=== PATIENT | male | born 1990 ===

== ENCOUNTER 2024-01-13 13:15 | Emergency (ER) | payer SELFPAY ==
[2024-01-13] MEDS ORDERED: MORPHINE 4 MG/ML SYR ONE (14:05)
[2024-01-13] MEDS ORDERED: NA CHLORIDE 0.9% 1,000 ML ONE ×2 (14:05→16:09)
[2024-01-13] MEDS ORDERED: ONDANSETRON 4 MG/2 ML VIAL ONE (14:05)
[2024-01-13 14:06] LABS: Absolute Basophils 0.1 K/uL (0-0.5); Absolute Eosinophils 0.4 K/uL (0-0.5); Absolute Monocytes 0.5 K/uL (0.1-1.3); Absolute Neutrophil 5.1 K/uL (1.8-8.0); Basophils % 1.3 % (0-1.3); Eosinophils % 5.1 % (0-4.4); Hematocrit 48.4 % (39.6-49.0); Hemoglobin 16.4 g/dL (13.6-17.9); Lymphocytes % 24.5 % (15.3-44.8); MCH 32.9 pg (27.0-35.0); MCV 96.8 fL (80-100); MPV 8.4 fL (7.6-11.3); Neutrophils % 63.1 % (41.7-73.7); Platelets 266 thou/uL (152-406); Red Cell Distribution Width 11.9 % (12.1-15.2)
[2024-01-13 14:24] LABS: ALT/SGPT 20 U/L (16-61); AST/SGOT 15 U/L (15-37); Alkaline Phosphatase 103 U/L (45-117); Anion Gap 20.2 mEq/L (5.0-15.0); BUN Blood Urea Nitrogen 15 mg/dL (7-18); Bicarbonate 15 mEq/L (21-32); Bilirubin Total 1.7 mg/dL (0.2-1.0); Glomerular Filtration Rate 98 ml/min (=/>90); Lipase 24 U/L (13-75); Potassium 4.2 mEq/L (3.5-5.1); Protein, Total 7.6 g/dL (6.4-8.2); Sodium Level 135 mEq/L (136-145)
[2024-01-13 14:25] LABS: Albumin < 0.9 g/dL (3.4-5.0); Albumin/Globulin Ratio ND (1.1-1.8); Globulin 6.7 g/dL (2.3-3.5)
[2024-01-13 14:26] LABS: Glucose Level 43 mg/dL (74-106)
--- NOTE | 2024-01-13 15:21 | RAD REPORT ---
EXAMINATION: CT ABDOMEN AND PELVIS WITH CONTRAST CLINICAL INDICATION: Male, 33 years old.ABD PAIN TECHNIQUE: CT abdomen and pelvis was performed, after the administration of IV contrast, [facility]. Axial, sagittal and coronal reconstructions were obtained. One or more of the following dose reduction techniques were used: Automated exposure control, adjustment of the mA and/o r kV according to patient size, and/or iterative reconstruction. Unless otherwise specified, incidental findings do not require dedicated imaging follow-up. [id number]. COMPARISON: No prior exam. FINDINGS: LOWER CHEST: The visualized lung bases are clear. LIVER: Normal in size and contour. No focal lesion. GALLBLADDER/BILE DUCT: No biliary ductal dilatation.? PANCREAS: No mass, ductal dilation, or ana maria-pancreatic fluid. SPLEEN: Normal size. No focal lesion. ADRENALS: Normal; no mass. KIDNEYS AND URETERS: Normal size and contour. No hydronephrosis. URINARY BLADDER: Normal contour. GASTROINTESTINAL TRACT: Stomach is non-dilated. Small bowel has normal course and caliber. No colonic wall thickening or pericolonic inflammatory changes. No appendicitis. PERITONEUM: No ascites.Small fat containing ventral hernia. LYMPH NODES: No lymphadenopathy. ABDOMINAL AORTA AND OTHER VESSELS: Normal caliber aorta and IVC. REPRODUCTIVE ORGANS: No pathologic process MUSCULOSKELETAL: No acute or suspicious osseous abnormality. ADDITIONAL FINDINGS: None. IMPRESSION: No acute or significant abnormalities seen in the abdomen or pelvis.
[2024-01-13 15:41] LABS: Specific Gravity > 1.030 (1.005-1.030); Sqamous Epithelial <5 /HPF (None Seen); Urine Bacteria None Seen /HPF (<20); Urine Bilirubin NEGATIVE (Negative); Urine Blood Negative (Negative); Urine Clarity Clear (Clear); Urine Color Light-Yellow (Yellow); Urine Culture Reflex Order NOT NEEDED; Urine Glucose NEGATIVE (Negative); Urine Ketones NEGATIVE (Negative); Urine Microscopic Reflex YN ORDER UMIC; Urine Mucus 1+ /HPF (None Seen); Urine Nitrite NEGATIVE (Negative); Urine Protein NEGATIVE (Negative); Urine RBC <5 /HPF (None Seen); Urine Urobilinogen Normal (Normal); Urine WBC <5 /HPF (<5); Urine pH 6.5 (5.0-7.0)
[2024-01-13] MEDS ORDERED: D10W 250 ML IV ONE (16:10)
[2024-01-13 16:15] LABS: Arterial Blood Carboxyhemoglob 2.6 % (0-1.5); Blood Gas Oxyhemoglobin 92.5 % (94-97)
[2024-01-13 16:16] LABS: Blood Gas THB 15.4 g/dl (12-18)
[2024-01-13 17:08] LABS: Anion Gap 7.8 mEq/L (5.0-15.0); Potassium 3.8 mEq/L (3.5-5.1)
--- NOTE | 2024-01-13 17:20 | EDPHYS ---
Physician Documentation [facility] Name: Fermin Guo Age: 33 yrs Sex: Male : 1990 Arrival Date: 01/13/2024 Time: 13:15 Bed 20 Private MD: JORGE Physician Aaron Aguilar HPI: 01/12 15:32 This 33 yrs old Male presents to ER via Ambulatory with complaints of Pain. gurmeet 15:32 The patient presents with abdominal pain in the lower abdomen, in the periumbilical gurmeet area. Onset: The symptoms/episode began/occurred 2 day(s) ago. The symptoms do not radiate. Associated signs and symptoms: none. The symptoms are described as crampy. Modifying factors: The symptoms are alleviated by nothing, the symptoms are aggravated by food, pressure. Severity of pain: At its worst the pain was moderate in the emergency department the pain has improved. The patient has experienced a previous episode, The patient has experienced similar episodes in the past. Historical: - Allergies: 13:38 No Known Allergies; tm6 - PMHx: 13:38 None; tm6 - PSHx: 13:38 None; tm6 - Immunization history:: Client reports receiving the 2nd dose of the Covid vaccine. - Infectious Disease History:: Denies. - Social history:: Smoking status: Patient reports the use of cigarette tobacco products, smokes one-half pack cigarettes per day, Patient uses alcohol, occasionally. - Family history:: not pertinent. ROS: 15:32 Constitutional: Negative for fever, chills, and weight loss, Eyes: Negative for injury, gurmeet pain, redness, and discharge, ENT: Negative for injury, pain, and discharge, Neck: Negative for injury, pain, and swelling, Cardiovascular: Negative for chest pain, palpitations, and edema, Respiratory: Negative for shortness of breath, cough, wheezing, and pleuritic chest pain, Back: Negative for injury and pain, : Negative for injury, bleeding, discharge, and swelling, MS/Extremity: Negative for injury and deformity, Skin: Negative for injury, rash, and discoloration, Neuro: Negative for headache, weakness, numbness, tingling, and seizure, Psych: Negative for depression, anxiety, suicide ideation, homicidal ideation, and hallucinations, Allergy/Immunology: Negative for hives, rash, and allergies, Endocrine: Negative for neck swelling, polydipsia, polyuria, polyphagia, and marked weight changes, Hematologic/Lymphatic: Negative for swollen nodes, abnormal bleeding, and unusual bruising, 15:32 Abdomen/GI: Positive for abdominal pain, of the umbilical area, Exam: 15:32 Constitutional: This is a well developed, well nourished patient who is awake, alert, gurmeet and in no acute distress. Head/Face: Normocephalic, atraumatic. Eyes: Pupils equal round and reactive to light, extra-ocular motions intact. Lids and lashes normal. Conjunctiva and sclera are non-icteric and not injected. Cornea within normal limits. Periorbital areas with no swelling, redness, or edema. ENT: Nares patent. No nasal discharge, no septal abnormalities noted. Tympanic membranes are normal and external auditory canals are clear. Oropharynx with no redness, swelling, or masses, exudates, or evidence of obstruction, uvula midline. Mucous membranes moist. Neck: Trachea midline, no thyromegaly or masses palpated, and no cervical lymphadenopathy. Supple, full range of motion without nuchal rigidity, or vertebral point tenderness. No Meningismus. Chest/axilla: Normal chest wall appearance and motion. Nontender with no deformity. No lesions are appreciated. Cardiovascular: Regular rate and rhythm with a normal S1 and S2. No gallops, murmurs, or rubs. Normal PMI, no JVD. No pulse deficits. Respiratory: Lungs have equal breath sounds bilaterally, clear to auscultation and percussion. No rales, rhonchi or wheezes noted. No increased work of breathing, no retractions or nasal flaring. Abdomen/GI: Soft, non-tender, with normal bowel sounds. No distension or tympany. No guarding or rebound. No evidence of tenderness throughout. Back: No spinal tenderness. No costovertebral tenderness. Full range of motion. Male : Normal genitalia with no discharge or lesions. Skin: Warm, dry with normal turgor. Normal color with no rashes, no lesions, and no evidence of cellulitis. MS/ Extremity: Pulses equal, no cyanosis. Neurovascular intact. Full, normal range of motion. Neuro: Awake and alert, GCS 15, oriented to person, place, time, and situation. Cranial nerves II-XII grossly intact. Motor strength 5/5 in all extremities. Sensory grossly intact. Cerebellar exam normal. Normal gait. Psych: Awake, alert, with orientation to person, place and time. Behavior, mood, and affect are within normal limits. Vital Signs: 13:36 BP 122 / 91; Pulse 82; Resp 17; Temp 97.4; Pulse Ox 100% on R/A; MAP 101 mmHg; Weight tm6 64 kg; Height 5 ft. 6 in. ; Pain 8/10; 14:25 BP 112 / 83; Pulse 67; Resp 16 S; Pulse Ox 100% on R/A; kc6 16:47 BP 108 / 78; Pulse 87; Resp 16 S; Pulse Ox 100% on R/A; kc6 17:20 BP 107 / 80; Pulse 70; Resp 16 S; Pulse Ox 100% on R/A; kc6 13:36 Body Mass Index 22.15 (64.00 kg, 170 cm) tm6 13:36 Pain Scale: Adult tm6 MDM: 13:32 Patient medically screened. gurmeet 15:35 Differential diagnosis: bowel obstruction, Cholelithiasis, diverticulitis, non-specific gurmeet abd pain, pancreatitis, urinary tract infection, umbilical hernia. Data reviewed: vital signs, nurses notes, lab test result(s), EKG, radiologic studies, CT scan. Consideration of Admission/Observation Escalation of care including admission/observation considered. I considered the following discharge prescriptions or medication management in the emergency department Medications were administered in the Emergency Department. See MAR. Independent interpretation of the following test(s) in the Emergency Department CT Scan: My interpretation is ct abdomen and pelvis. Test considered but Not performed: Ultrasound no abd usg. Historians other than the Patient: pt well informed. Care significantly affected by the following chronic conditions: none . Counseling: I had a detailed discussion with the patient and/or guardian regarding the historical points, exam findings, and any diagnostic results supporting the discharge/admit diagnosis, lab results, radiology results, the need for outpatient follow up, for definitive care, a family practitioner, a general surgeon. 01/12 13:34 Order name: CBC with Diff; Complete Time: 15:29 gurmeet 01/12 13:34 Order name: CMP; Complete Time: 15:29 gurmeet 01/12 13:34 Order name: Lipase; Complete Time: 15:29 gurmeet 01/12 13:34 Order name: Urinalysis w/ reflexes; Complete Time: 15:42 [facility] 01/12 14:48 Order name: Glucose, Ancillary Testing; Complete Time: 15:29 EDMS 01/12 15:31 Order name: ABG; Complete Time: 16:57 [facility] 01/12 15:31 Order name: BMP; Complete Time: 17:19 [facility] 01/12 16:36 Order name: Glucose, Ancillary Testing; Complete Time: 16:57 EDMS 01/12 13:34 Order name: CT Abd/Pelvis - IV Contrast Only; Complete Time: 15:29 [facility] 01/12 13:34 Order name: IV Saline Lock; Complete Time: 14:10 [facility] 01/12 13:34 Order name: Labs collected and sent; Complete Time: 14:10 [facility] 01/12 14:28 Order name: PO challenge: juice; Complete Time: 14:34 [facility] Administered Medications: 14:34 Drug: NS 0.9% IV 1000 ml IV at 1 bolus Per protocol; 1000 mL bolus Route: IV; Rate: 1 kc6 bolus; Site: right antecubital; 17:19 Follow up: Response: No adverse reaction; IV Status: Completed infusion; IV Intake: kc6 1000ml 16:32 Drug: Ondansetron IVP 4 mg IVP once; over 2 minutes Route: IVP; Site: right antecubital;kc6 17:19 Follow up: Response: No adverse reaction 6 16:32 Drug: morphine IVP or IV 4 mg IVP once over 4 mins Route: IVP; Infused Over: 4 mins; kc6 Site: right antecubital; 17:19 Follow up: Response: No adverse reaction; Pain is decreased; RASS: Alert and Calm (0) 6 16:32 Drug: NS 0.9% IV 1000 ml IV at 1 bolus Per protocol; 1000 mL bolus Route: IV; Rate: 1 kc6 bolus; Site: right antecubital; 16:32 Drug: D10 in Water IVP 250 ml IVP once Route: IVP; Site: right antecubital; kc6 17:18 Follow up: Response: No adverse reaction kc6 Disposition Summary: 01/13/24 17:19 Discharge Ordered Notes: Location: Home gurmeet Problem: new gurmeet Symptoms: have improved gurmeet Condition: Stable gurmeet Diagnosis - Abdominal tenderness gurmeet - Hypoglycemia, unspecified gurmeet - Dehydration gurmeet - Umbilical hernia without obstruction or gangrene - reducible gurmeet - Tobacco abuse counseling gurmeet - Tobacco use gurmeet Followup: gurmeet - With: Private Physician - When: 2 - 3 days - Reason: Recheck today's complaints, Continuance of care, Re-evaluation by your physician Followup: gurmeet - With: Westley Pelayo, - When: 2 - 3 days - Reason: Recheck today's complaints, Re-evaluation by your physician Discharge Instructions: - Discharge Summary Sheet gurmeet - Abdominal Pain, Adult gurmeet - Dehydration, Adult gurmeet - Hernia, Adult gurmeet - Hypoglycemia gurmeet - Self-Destructive Behavior gurmeet - Steps to Quit Smoking gurmeet - Abdominal Pain, Adult, Lono-[id number] gurmeet - Steps to Quit Smoking, Fkwg-ya-Ehdy gurmeet - Hyponatremia, Sohx-zs-[id number] gurmeet - Hernia, Adult, Apff-dv-Utwn gurmeet - Dehydration, Adult, Tgcw-lt-Eoho gurmeet - Rehydration, Adult gurmeet - Umbilical Hernia, Adult gurmeet Forms: - Medication Reconciliation Form gurmeet - Antibiotic Education gurmeet - Prescription Opioid Use gurmeet - Patient Portal Instructions gurmeet - Leadership Thank You Letter gurmeet Signatures: Dispatcher [employer] Aaron Griffin MD MD cha Campbell, Kaitlyn, RN RN kc6 Umu Dickson RN RN tm6
--- NOTE | 2024-01-13 17:20 | ER ---
Nurse's Notes [facility] Name: Fermin Guo Age: 33 yrs Sex: Male : 1990 Arrival Date: 01/13/2024 Time: 13:15 Bed 20 Private MD: Diagnosis: Abdominal tenderness;Hypoglycemia, unspecified;Dehydration;Umbilical hernia without obstruction or gangrene-reducible;Tobacco abuse counseling;Tobacco use Presentation: 01/12 13:36 Chief complaint: Patient states: two days ago left sided lower back pain started. tm6 Central abdomen, above belly button, has a bulge. Pain is unbearable. Coronavirus screen: Vaccine status: Patient reports receiving the 2nd dose of the covid vaccine. Ebola Screen: Patient negative for fever greater than or equal to 101.5 degrees Fahrenheit, and additional compatible Ebola Virus Disease symptoms Patient denies exposure to infectious person. Patient denies travel to an Ebola-affected area in the 21 days before illness onset. No symptoms or risks identified at this time. Initial Sepsis Screen: Does the patient meet any 2 criteria? No. Patient's initial sepsis screen is negative. Does the patient have a suspected source of infection? No. Patient's initial sepsis screen is negative. Risk Assessment: Do you want to hurt yourself or someone else? Patient reports no desire to harm self or others. Onset of symptoms was January 11, 2024. 13:36 Method Of Arrival: Ambulatory tm6 13:36 Acuity: SHELLI 3 tm6 Triage Assessment: 13:38 General: Appears in no apparent distress. Behavior is calm, cooperative. Pain: tm6 Complains of pain in left low back and epigastric area Pain currently is 8 out of 10 on a pain scale. Pain began 2-3 days ago. EENT: No signs and/or symptoms were reported regarding the EENT system. Neuro: Level of Consciousness is awake, alert, obeys commands, Oriented to person, place, time, situation. Cardiovascular: Patient's skin is warm and dry. Respiratory: Airway is patent Respiratory effort is even, unlabored, Respiratory pattern is regular, symmetrical. GI: Abdomen is flat, non-distended, Reports Pain is 8 out of 10 on a pain scale. bulge in center of abdomen. : Reports pain in left flank(s). Derm: No signs and/or symptoms reported regarding the dermatologic system. Musculoskeletal: No signs and/or symptoms reported regarding the musculoskeletal system. Historical: - Allergies: 13:38 No Known Allergies; tm6 - PMHx: 13:38 None; tm6 - PSHx: 13:38 None; tm6 - Immunization history:: Client reports receiving the 2nd dose of the Covid vaccine. - Infectious Disease History:: Denies. - Social history:: Smoking status: Patient reports the use of cigarette tobacco products, smokes one-half pack cigarettes per day, Patient uses alcohol, occasionally. - Family history:: not pertinent. Screenin:25 [facility] ED Fall Risk Assessment (Adult) History of falling in the last 3 months, kc6 including since admission No falls in past 3 months (0 pts) Confusion or Disorientation No (0 pts) Intoxicated or Sedated No (0 pts) Impaired Gait No (0 pts) Mobility Assist Device Used No (0 pt) Altered Elimination No (0 pt) Score/Fall Risk Level 0 - 2 = Low Risk Oriented to surroundings. Abuse screen: Denies threats or abuse. Denies injuries from another. Nutritional screening: No deficits noted. Tuberculosis screening: No symptoms or risk factors identified. Assessment: 13:45 General: Appears in no apparent distress. comfortable, well groomed, well developed, kc6 Behavior is calm, cooperative, appropriate for age. Pain: Complains of pain in abdomen and epigastric area and left low back Pain currently is 7 out of 10 on a pain scale. Neuro: Level of Consciousness is awake, alert, obeys commands, Oriented to person, place, time, situation, Appropriate for age. Cardiovascular: Capillary refill < 3 seconds. Respiratory: Airway is patent Trachea midline Respiratory effort is even, unlabored, Respiratory pattern is regular, symmetrical. GI: Abdomen is flat, non-distended, Bowel sounds present X 4 quads. Reports upper abdominal pain, nausea, Patient currently denies diarrhea, vomiting. : No signs and/or symptoms were reported regarding the genitourinary system. EENT: No signs and/or symptoms were reported regarding the EENT system. Derm: No signs and/or symptoms reported regarding the dermatologic system. Skin is intact, is healthy with good turgor, Skin is pink, warm \T\ dry. Musculoskeletal: No signs and/or symptoms reported regarding the musculoskeletal system. Circulation, motion, and sensation intact. Capillary refill < 3 seconds, Range of motion: intact in all extremities. 13:50 Reassessment: pt refusing pain medications at this time. states he'd like to get kc6 imaging done prior to being medicated. 14:44 Reassessment: Patient appears in no apparent distress at this time. No changes from kc6 previously documented assessment. Patient and/or family updated on plan of care and expected duration. Pain level reassessed. Patient is alert, oriented x 3, equal unlabored respirations, skin warm/dry/pink. 16:47 Reassessment: Patient appears in no apparent distress at this time. No changes from kc6 previously documented assessment. Patient and/or family updated on plan of care and expected duration. Pain level reassessed. Patient is alert, oriented x 3, equal unlabored respirations, skin warm/dry/pink. 17:20 Reassessment: Patient appears in no apparent distress at this time. No changes from kc6 previously documented assessment. Patient and/or family updated on plan of care and expected duration. Pain level reassessed. Patient is alert, oriented x 3, equal unlabored respirations, skin warm/dry/pink. Patient states feeling better. Patient states symptoms have improved. Vital Signs: 13:36 BP 122 / 91; Pulse 82; Resp 17; Temp 97.4; Pulse Ox 100% on R/A; MAP 101 mmHg; Weight tm6 64 kg; Height 5 ft. 6 in. ; Pain 8/10; 14:25 BP 112 / 83; Pulse 67; Resp 16 S; Pulse Ox 100% on R/A; kc6 16:47 BP 108 / 78; Pulse 87; Resp 16 S; Pulse Ox 100% on R/A; kc6 17:20 BP 107 / 80; Pulse 70; Resp 16 S; Pulse Ox 100% on R/A; kc6 13:36 Body Mass Index 22.15 (64.00 kg, 170 cm) tm6 13:36 Pain Scale: Adult tm6 ED Course: 13:26 Patient arrived in ED. mg5 13:32 Barrie Page MD is Attending Physician. rn 13:32 Attending Physician role handed off by Barrie Page MD gurmeet 13:32 Aaron Aguilar MD is Attending Physician. gurmeet 13:38 Triage completed. tm6 13:38 Arm band placed on right wrist. tm6 14:00 Veronica Tirado, RN is Primary Nurse. kc6 14:24 Inserted saline lock: 20 gauge in right antecubital area, using aseptic technique. kc6 Blood collected. Flushed with 10 mL NS. Patient maintains SpO2 saturation greater than 95% on room air. 14:25 Patient has correct armband on for positive identification. Bed in low position. Call kc6 light in reach. Side rails up X 1. Adult w/ patient. Pulse ox on. NIBP on. Door closed. Noise minimized. Lights dimmed. Pillow given. 14:43 Diet: Patient given juice. kc6 15:00 CT Abd/Pelvis - IV Contrast Only In Process Unspecified. EDMS 15:01 CT completed. Patient tolerated procedure well. nj 16:32 BMP Sent. kc6 17:19 Westley Pelayo DO is Referral Physician. gurmeet Administered Medications: 14:34 Drug: NS 0.9% IV 1000 ml IV at 1 bolus Per protocol; 1000 mL bolus Route: IV; Rate: 1 kc6 bolus; Site: right antecubital; 17:19 Follow up: Response: No adverse reaction; IV Status: Completed infusion; IV Intake: kc6 1000ml 16:32 Drug: Ondansetron IVP 4 mg IVP once; over 2 minutes Route: IVP; Site: right antecubital;kc6 17:19 Follow up: Response: No adverse reaction kc6 16:32 Drug: morphine IVP or IV 4 mg IVP once over 4 mins Route: IVP; Infused Over: 4 mins; kc6 Site: right antecubital; 17:19 Follow up: Response: No adverse reaction; Pain is decreased; RASS: Alert and Calm (0) kc6 16:32 Drug: NS 0.9% IV 1000 ml IV at 1 bolus Per protocol; 1000 mL bolus Route: IV; Rate: 1 kc6 bolus; Site: right antecubital; 16:32 Drug: D10 in Water IVP 250 ml IVP once Route: IVP; Site: right antecubital; kc6 17:18 Follow up: Response: No adverse reaction kc6 Intake: 17:19 IV: 1000ml; Total: 1000ml. kc6 Outcome: 17:19 Discharge ordered by MD. levi 18:13 Patient left the ED. ll1 Signatures: Dispatcher [employer] EDMS Aaron Aguilar MD MD cha Nieto, Roman, MD MD rn Devan, Bere Silveira, RN RN ll1 Veronica Tirado RN RN kc6 Ashley Cavanaugh 5 Umu Dickson RN RN tm6
[2024-01-14 08:52] VITALS: TEMP 97.4; O2SAT 100
[2024-01-14 08:59] VITALS: BP 107/80
== END 2024-01-13 18:13 | disposition home or self-care (01) ==
LOC: ER 13:15
DX: K42.9 Umbilical hernia without obstruction or gangrene (principal); E16.2 Hypoglycemia, unspecified; E86.0 Dehydration; F17.210 Nicotine dependence, cigarettes, uncomplicated; Z71.6 Tobacco abuse counseling
CPT/HCPCS: 36415; 36600; 74177; 80048; 80053; 81001; 82805; 82947; 83690; 85025; 96361; 96374; 96375; 99284; J2405; J7030; Q9967